=== PATIENT | female | born 1935 | race Caucasian/White ===

== ENCOUNTER 2020-04-30 13:13 | Outpatient (RCR) | payer MEDICARE, OTHER, SELFPAY ==
[2015-03-10 06:16] VITALS: BMI 26.9
== END 2020-04-30 23:59 ==
LOC: IMMUN 13:13
PROVIDERS: PCP Family Medicine; Referring Provider Family Medicine; Visit Provider Family Medicine
DX: Z23 Encounter for immunization (principal)
CPT/HCPCS: 0011A; 0012A; 91301

== ENCOUNTER 2023-08-29 09:25 | Emergency (ER) | payer MEDICARE, OTHER, SELFPAY ==
[2023-08-29 09:26] VITALS: BP 173/78; PULSE 101; RESP 18; TEMP 36.6; O2SAT 96; BMI 28.3
--- NOTE | 2023-08-29 09:33 | EKG12_ITS ---
Test Reason : CP Blood Pressure : / mmHG Vent. Rate : 081 BPM Atrial Rate : 081 BPM P-R Int : 162 ms QRS Dur : 080 ms QT Int : 380 ms P-R-T Axes : 053 000 059 degrees QTc Int : 441 ms Normal sinus rhythm Nonspecific T wave abnormality Abnormal ECG Confirmed by ACE ARCHIBALD, JACKELINE ([id number]), desk editor CHRIST FU ([id number]) on 08/30/2023 11:23:03 AM Referred By: RICHARD/YANETH Confirmed By:JACKELINE BELLO MD
--- NOTE | 2023-08-29 09:42 | CT_ITS ---
STUDY: CT ABDOMEN AND PELVIS WITH CONTRAST REASON FOR EXAM: Female, 87 years old. One week history of chest pain. Intermittent epigastric pain. RADIATION DOSAGE (If Supplied By Facility): CTDIvol = ( 11.52 ) mGy, DLP = ( 679.19 ) mGycm TECHNIQUE: Transaxial images were obtained from the dome of the diaphragm to the symphysis pubis without oral contrast. IV 100mL Isovue-370 was administered. Sagittal and coronal images were reconstructed. Individualized dose optimization techniques were used for this CT. COMPARISON: None. FINDINGS: Minimal linear scarring at the lung bases. The visualized portions of the heart are within normal limits. There is decreased attenuation of the liver consistent with steatosis. Normal gallbladder and extrahepatic biliary system. Normal spleen. Normal pancreas. Normal bilateral adrenal glands. 1.1 cm cyst in the lateral midportion of the right kidney. There is a 2 cm cyst in the upper lateral aspect of the left kidney. There is a small hiatal hernia. Normal small intestine. There are multiple colonic diverticula consistent with diverticulosis. There is non-visualization of the appendix. There is diffuse atherosclerotic calcification of the abdominal aorta, without a demonstrated aneurysm. Normal inferior vena cava. Normal retroperitoneum. Normal urinary bladder. There is absence of the uterus consistent with a prior hysterectomy. Normal abdominal wall. There are diffuse degenerative changes of the visualized lumbar spine. CT/Abdomen/Pelvis W IV Cont ONLY IMPRESSION: Fatty infiltration of the liver. Small hiatal hernia. Status post hysterectomy. Sigmoid diverticulosis. Bilateral renal cysts. Electronically Signed: Curtis Souza MD at 11:21 EDT ,
--- NOTE | 2023-08-29 09:43 | EDS_ITS ---
HPI History of Present Illness Chief Complaint: Chest Pain Informant: patient Onset/Context/Timing Onset: Days Activity at onset: gradual Timing: Intermittent Quality: Positive for Aching Location: Left Chest and - (Upper abdomen left chest.) Current Severity: Gone Maximum Severity: Mild Worsened By: Nothing Relieved By: Nothing Associated Symptoms: Positive for Dyspnea (Dyspnea for a year. No change. No worse.); Negative for Nausea, Vomiting, Diaphoresis, Cough, Fever, Lightheadedness, Acid Reflux or Palpitations Narrative Prior Similar Symptoms: No Recent Illness/Hospitalization: No CVD Risk Factors: Negative for Diabetes PE Risk Factors: Negative for Recent Travel/Surgery, Recent Immobilization, Prior DVT or PE, Cancer or OCP + Smoking + >/=35 TAD Risk Factors: Negative for Marfan's Syndrome PFSH PFS Home Medications ?Medication ?Instructions ?Recorded ?Last Taken ?Type hydrochlorothiazide 12.5 mg capsule 12.5 mg PO DAILY 02/18/15 Unknown History losartan 100 mg tablet 100 mg PO DAILY 02/18/15 03/10/15 05:00 History metformin 500 mg tablet 500 mg PO BID 02/18/15 Unknown History metoprolol tartrate 25 mg tablet 25 mg PO DAILY 02/18/15 03/10/15 05:00 History Allergy/AdvReac Type Severity Reaction Status Date / Time Sulfa (Sulfonamide Allergy Hives Verified 08/29/23 09:26 Antibiotics) Wxfqhmi-IDK-IzY Reductase AdvReac Other Verified 08/29/23 09:26 Inhibitor (Upzihtn-Tdo-Wis Reductase Inhibitor) Social History Smoking Status: Never smoker ROS ROS ED ROS Narrative Left chest discomfort nonexertional. Upper abdominal pain intermittent. Currently pain-free. No vomiting. No diarrhea. No dysuria. No fever. No significant weight loss. Review of Systems ROS Unobtainable: Denies due to encephalopathy Constitutional Constitutional ED: Denies chills or fever(s) Eyes Eyes: Reports none ENT ENT ED: Denies ear pain Cardiovascular Cardiovascular: Reports as per HPI and chest pain Respiratory/Chest Respiratory/Chest: Denies cough or dyspnea Gastrointestinal Gastrointestinal: Reports abdominal pain; Denies constipation, diarrhea, melena, nausea or vomiting Genitourinary Genitourinary ED: Denies dysuria or hematuria Musculoskeletal Musculoskeletal: Denies arthralgias Integumentary Denies abscess Neurologic Neurologic: Denies headache(s) Psychiatric Psychiatric: Denies anxiety Endocrine Endocrinology: Denies cold intolerance Hematologic/Lymphatic Hematologic/Lymphatic: Denies easy bleeding, easy bruising or lymphadenopathy Allergic/Immunologic Allergic/Immunologic ED: Denies mouth swelling or tongue swelling EXAM Physical Exam Narrative Exam Narrative: Well-appearing 87-year-old female. Sitting upright in bed. Vital signs stable afebrile. Pulse ox 96% on room air no signs hypoxia. H EENT exam unremarkable. Neck nontender. Lungs clear to auscultation bilaterally. Heart regular rhythm rate about 100. Chest wall nontender. Abdomen soft, nontender nondistended normal bowel sounds no peritoneal signs. Specifically the right upper quadrants nontender. No Ash sign. No distention. No pulsatile mass. Moving all 4 extremities. Nontender no edema. Neurologically she is awake and alert with no focal motor deficits. Const Vital Signs: 08/29/23 09:26 08/29/23 09:33 08/29/23 09:50 Temperature 97.8 F Temperature Source Temporal Pulse Rate 101 H Respiratory Rate 18 Respiratory Effort Normal Blood Pressure 173/78 H Blood Pressure Mean 109 Pulse Ox 96 Oxygen Delivery Method Room Air Room Air 08/29/23 10:20 08/29/23 11:00 08/29/23 12:00 Temperature Temperature Source Pulse Rate 81 82 88 Respiratory Rate 18 18 18 Respiratory Effort Blood Pressure 148/62 H 142/68 H 168/71 H Blood Pressure Mean 90 92 103 Pulse Ox 97 95 96 Oxygen Delivery Method Room Air Room Air Room Air Positive well nourished and well developed; Negative for cachectic, contractures or unkempt General Appearance ED: well developed and NAD; Negative for unkempt, cachectic, contractures or pallor Nutritional Appearance: Negative for cachectic HEENT Reports moist mucous membranes normocephalic and atraumatic; Negative for trauma or tenderness Eyes PERRL and EOMs intact bilaterally General Eye ED: Negative for pale conjunctiva or scleral icterus Neck no lymphadenopathy, supple and no JVD General: Negative for tenderness Chest Wall inspection of chest normal and palpation of chest normal Chest: Negative for tenderness Resp normal respiratory effort and clear to auscultation bilaterally Effort and Inspection: Negative for respiratory distress Auscultation: Negative for rales, rhonchi or wheezes Cardio regular rate, regular rhythm, S1 normal heart sound, S2 normal heart sound and no murmurs Rate: Negative for bradycardia or tachycardic Peripheral Pulses: pulses 2+ throughout GI normal to inspection, nondistended, normoactive bowel sounds, soft to palpation, non-tender, non-distended and no masses; Negative for hepatosplenomegaly Back/Spine no CVA tenderness and no thoracic nor lumbar tenderness General Back: Negative for CVA tenderness Cervical Spine: Negative for cervical spine tenderness Extremity normal to inspection General Extremety ED: Negative for edema, pulses abnormal or tenderness General Extremity: Negative for edema or pulses abnormal Neuro oriented x3 and CN's II-XII intact bilaterally Sensorium / Orientation: awake, alert, oriented to person, oriented to place and oriented to time; Negative for confused, lethargic or stuporous Motor Exam: strength 5/5 throughout; Negative for general weakness or strength abnormal Psych mental status grossly normal Appearance: Negative for unkempt Attitude: No agitated Mood & Affect: Negative for depressed, anxious or tearful Skin no rashes or lesions noted and no wounds General Skin Exam: Negative for jaundice, pallor or other Rashes: No rashes noted Trauma: Negative for abrasion, laceration or puncture Heart Score History: Slightly/Non-Suspicious ECG: Normal Age: >/= 65 years Risk Factors: No Risk Factors Troponin: </= Normal Limit Score: 2 MDM MDM MDM Narrative Medical decision making narrative: 87-year-old female with atypical upper abdominal left-sided chest pain. Not exertional. She has had her appendix out hysterectomy but she still has her gallbladder. Does not directly related to food. She has had no vomiting or weight loss. Differential would include cardiac chest pain that I am not sold on. Gallbladder disease versus gastritis ulcer or other etiologies. She undergo cardiac workup. Holding the aspirin. And a CT of her abdomen with abdominal labs also. She is having no urinary symptoms I do not think she needs a UA. On repeat exam the patient is doing well. Exam unchanged. We have gone over her test results and CAT scan awaiting her second troponin Petz okay she will be discharged home. Repeat exam at 12:19 PM patient doing well. We discussed her test results. She will be discharged home with atypical abdominal and chest pain of uncertain etiology. History & Record Review Discussion w/independent historian: Patient Additional record(s) reviewed:: Prior inpatient record, Prior outpatient record, Prior ED visit and Prior labs Lab Data Attestation: I reviewed the patient's lab results. Lab results narrative: CBC is shows a white count of 7. H&H 13 and 39. Platelets 350. CMP shows potassium 3.4. Gap 11. BUN and creatinine 14 and 1.1. Glucose elevated to 13. Liver enzymes normal. Lipase normal at 30. CAT scan of the abdomen shows chronic changes no acute process. Chest x-ray chronic changes also. Initial troponin 9. Repeat 11. Labs: Laboratory Results - last 24 hr 08/29/23 08/29/23 09:47 11:47 WBC 7.7 RBC 4.26 Hgb 13.2 Hct 39.0 MCV 91.5 MCH 31.0 MCHC 33.8 RDW Std Deviation 44.8 H RDW Coeff of Bridget 13.4 Plt Count 350 MPV 10.1 Immature Gran % (Auto) 0.300 Neut % (Auto) 45.5 L Lymph % (Auto) 39.5 [place] % (Auto) 13.0 H Eos % (Auto) 1.6 Baso % (Auto) 0.1 Absolute Neuts (auto) 3.5 Absolute Lymphs (auto) 3.06 Nucleated RBC % 0 Sodium 137 Potassium 3.4 L Chloride 102 Carbon Dioxide 24.0 Anion Gap 11 BUN 14 Creatinine 1.11 H Estim Creat Clear Calc 29.15 Est GFR (MDRD) Af Amer 60 Est GFR (MDRD) Non-Af 49 L BUN/Creatinine Ratio 12.6 Glucose 213 H Calcium 9.3 Total Bilirubin 0.80 AST 24 ALT 36 Alkaline Phosphatase 90 Troponin I High Sens 9 11 Total Protein 7.2 Albumin 3.8 Globulin 3.4 Albumin/Globulin Ratio 1.1 Lipase 30 Radiography Chest X-Ray - ED: 1 View, Read by ED Physician, Lungs, Mediastinum, Bony Structures, No Acute Disease and Chronic Changes Diagnostic Testing: Clinical Impression(s) from Imaging Studies Abdomen/Pelvis CT 08/29/23 09:42 IMPRESSION: Fatty infiltration of the liver. Small hiatal hernia. Status post hysterectomy. Sigmoid diverticulosis. Bilateral renal cysts. Electronically Signed: Curtis Souza MD at 11:21 EDT , Chest X-Ray 08/29/23 11:02 IMPRESSION: There is elevation of the left hemidiaphragm. No acute abnormality is seen. Electronically Signed: Curtis Souza MD at 11:22 EDT , Chest x-ray, portable, 2 views both anterior shows slightly elevated left hemidiaphragm otherwise no acute process. Normal lungs. Normal cardiac silhouette. No infiltrates. No pneumonias. No effusions or pulmonary edema. Interpreted by myself. Rhythm Strip Rhythm Strip: Sinus Rhythm Rate: 81 Ectopy: None EKG Initial EKG: Attestation: I personally reviewed and interpreted this EKG as follows: Interpretation: Sinus Rhythm and No Acute Injury Pattern Comments: Normal sinus rhythm rate 81 no acute signs of KS or ischemia. No dysrhythmia. Discharge Plan Triage Chief Complaint: Chest Pain ED Provider: Freddie Gonzalez Dx/Rx/DC Orders Clinical Impression: Chest pain, Abdominal pain Instructions: ED Chest Pain, Uncertain Cause Prescriptions: No Action metformin 500 MG tablet 500 mg PO BID hydrochlorothiazide 12.5 MG capsule 12.5 mg PO DAILY losartan 100 MG tablet 100 mg PO DAILY metoprolol tartrate 25 MG tablet 25 mg PO DAILY Primary Care Provider: Tim Marks Referrals: Tim Marks MD [Primary Care Provider] - 3-5 Days if not improving Activity Restrictions/Additional Instructions: Your labs, EKG, chest x-ray and CAT scan are all unremarkable. Follow-up with your primary care physician. Return if you are feeling a lot worse. Print Language: Macedonian Disposition Disposition: Home, Self Care
[2023-08-29 09:58] LABS: Absolute Lymphocyte Count 3.06 X10^3/uL (0.83-4.51); Absolute Neutrophil Count 3.5 X10^3/uL (2.0-7.7); Basophil# 0.01 X10^3/uL; Basophil% 0.1 % (0-1); Eosinophil# 0.12 X10^3/uL; Eosinophils% 1.6 % (0-5); Hemoglobin 13.2 g/dL (12.0-15.0); Lymphocyte # 3.06 X10^3/ul (0.83-4.51); Lymphocyte % 39.5 % (19-41); Mean Corp Hgb Conc 33.8 g/dL (32-36); Mean Corpuscular Volume 91.5 fL (81-99); Mean Platelet Vol. 10.1 fl (6.2-12.0); Monocyte# 1.01 X10^3/uL; NRBC Flagged by Analyzer 0 % (0-5); Neutrophil # 3.52 X10^3/uL (2.7-7.7); Neutrophil % 45.5 % (47-70); Platelet Count 350 K/mm3 (150-450); RBC Distribution Width CV 13.4 % (11.6-14.6); RBC Distribution Width SD 44.8 fl (35.1-43.9); Red Blood Count 4.26 M/mm3 (4.2-5.4); White Blood Count 7.7 K/mm3 (4.4-11.0)
[2023-08-29 10:20] VITALS: BP 148/62; PULSE 81; RESP 18; O2SAT 97
[2023-08-29 10:25] LABS: ALB/GLOB Ratio 1.1 RATIO (0.9-2.4); AST(SGOT) 24 U/L (15-37); Alanine Aminotransfer ALT/SGPT 36 U/L (13-56); Albumin, Serum 3.8 g/dL (3.2-5.0); Alkaline Phosphatase 90 U/L (45-117); Anion Gap 11 (5-15); BUN 14 mg/dL (7-18); BUN/Creat Ratio 12.6 RATIO (10-20); Calcium,Total 9.3 mg/dL (8.5-10.1); Chloride 102 mmol/L (98-107); Creatinine, Serum 1.11 mg/dL (0.55-1.02); EST Glomerular Filtration Rate 49 mL/min (>60); Est Glom Filt Rate - Afr Amer 60 mL/min (>60); Estimated Creatinine Clearance 29.15 ml/min; Globulin 3.4 g/dL (2.2-4.2); Glucose 213 mg/dL (74-106); Lipase 30 U/L (13-75); Potassium 3.4 mmol/L (3.5-5.1); Protein, Total 7.2 g/dL (6.4-8.2); Sodium Level 137 mmol/L (136-145); Troponin-I HS (w/2H Reflex) 9 pg/mL (3.0-54.0)
[2023-08-29 11:00] VITALS: BP 142/68; PULSE 82; RESP 18; O2SAT 95
--- NOTE | 2023-08-29 11:02 | RAD_ITS ---
STUDY: X-RAY CHEST REASON FOR EXAM: Female, 87 years old. Chest pain TECHNIQUE: Single AP portable view of the chest. COMPARISON: None. FINDINGS: EKG electrodes are seen. Elevation of the left hemidiaphragm. There is no demonstrated pleural abnormality. Normal size heart. Normal mediastinum and mainor. Normal visualized pulmonary arteries. There is atherosclerotic tortuosity of the aortic arch and descending thoracic aorta. There are diffuse degenerative changes of the visualized thoracic spine. Normal visualized ribs, clavicles, and shoulders. There is no demonstrated abnormality of the visualized soft tissue structures of the upper abdomen. RAD/Chest 1 View (Portable) IMPRESSION: There is elevation of the left hemidiaphragm. No acute abnormality is seen. Electronically Signed: Curtis Souza MD at 11:22 EDT ,
[2023-08-29 11:51] LABS: Reflex Troponin-HS? (from REC) Y
[2023-08-29 12:00] VITALS: BP 168/71; PULSE 88; RESP 18; O2SAT 96
[2023-08-29 12:10] LABS: Troponin-I HS 11 pg/mL (3.0-54.0)
[2023-08-29 12:37] VITALS: BP 168/77; PULSE 88; RESP 18; TEMP 35.9; O2SAT 98
== END 2023-08-29 12:43 | disposition home or self-care (01) ==
PROVIDERS: Emergency Provider Emergency Medicine; PCP Family Medicine; Visit Provider Emergency Medicine
DX: R07.9 Chest pain, unspecified (principal); R10.9 Unspecified abdominal pain; R06.00 Dyspnea, unspecified
CPT/HCPCS: 71045; 74177; 80053; 83690; 84484; 85025; 93005; 99283; Q9967